=== PATIENT | female | born 1975 | race Caucasian/White ===

== ENCOUNTER → 2021-04-26 | Outpatient (CLI) | payer BC ==
[~2021-04-26] MED LIST: BUSPAR 10MG10 MG PO; DEXILANT60 MG PO; ESCITALOPRAM OX10 MG PO; FARXIGA10 MG PO; FENOFIBRATE145 MG PO; FLONASE 0.05% N16 GM; LEVOTHYROXINE150 MCG PO; LISINOPRIL5 MG PO; METFORMIN HCL1000 M1 PO; METOPROLOL SUCC50 MG PO; OZEMPIC0.25 MG/0. SQ; PATADAY2.5 ML EYEBOTH; RELPAX40 MG PO; VASCEPA1 GM PO; VITAMIN D 40400 UNIT PO; VITAMIN D21250 MCG PO; VOLTAREN EC 7575 MG PO; WELLBUTRIN XL300 M1 PO
== END ==
LOC: KOH-I 15:51
DX: S69.92XA Unspecified injury of left wrist, hand and finger(s), initial encounter (principal); R29.898 Other symptoms and signs involving the musculoskeletal system
CPT/HCPCS: 73120; 73140